=== PATIENT | male | born 1990 | race Caucasian/White ===

== ENCOUNTER 2017-06-29 12:20 | Emergency (ER) | payer SELFPAY ==
[~2017-06-29 12:20] MED LIST: IBUP800T23 PO; LORTA5 PO; METH750T2 PO
[2017-06-29 12:21] VITALS: BP 130/72; PULSE 74; RESP 16; TEMP 98.4; O2SAT 99
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
== END 2017-06-29 12:58 | disposition left against medical advice (07) ==
LOC: NEPD 12:20
DX: S89.92XA Unspecified injury of left lower leg, initial encounter (principal); X50.1XXA Overexertion from prolonged static or awkward postures, initial encounter; Y93.55 Activity, bike riding
CPT/HCPCS: 99281